=== PATIENT | male | born 1965 | race Caucasian/White ===

== ENCOUNTER 2016-09-12 05:38 | Day surgery (SDC) | payer OTHER ==
[2016-09-12] MEDS ORDERED: IV START KIT ONE (05:51)
[2016-09-12] MEDS ORDERED: LACTATED RINGERS 1,000 ML ONE (05:51)
[2016-09-12] MEDS ORDERED: FENTANYL 250 MCG/5 ML AMP ONE (06:31)
[2016-09-12] MEDS ORDERED: MIDAZOLAM HCL 5 MG/5 ML VIAL ONE (06:31)
[2016-09-12] MEDS ORDERED: PROPOFOL 60 ML IV ONE (07:05)
[2016-09-12] MEDS ORDERED: KETAMINE HCL UD SYRINGE 100 MG/2 ML IV ONE (07:06)
--- NOTE | 2016-09-14 10:58 | SURGPATH ---
[facility] [address] [place] [id number] Patient Name: PACHECO VALENZUELA MR#: [id number] : 1965 Gender: M Specimen #: [id number] Collected: 09/12/2016 Received: 09/13/2016 Reported: 09/14/2016 Submitting Phys: ORTEGA YOU Copy To Phys: [facility] JAIRO FAIRBANKS Clinical History / Pre-Operative Diagnosis: INITIAL SCREENING COLONOSCOPY Specimen Source / Surgical Procedure Performed: DESCENDING COLON POLYP AT 25 CM X2 Interpretation: DESCENDING COLON, BIOPSIES: - HYPERPLASTIC POLYPS Electronically Signed Out Sky Nguyen M.D. Gross Description: The specimen is received in a formalin filled container labeled and "polyp, descending colon at 25 cm x2". To zelaya biopsies are each 0.4 cm. Totally embedded in one cassette. with velvet Yoana Colunga Microscopic Description: Microscopic performed. 1: 53721 K63.5
== END 2016-09-12 08:45 | disposition home or self-care (01) ==
LOC: SDC 05:38
PROVIDERS: ATTEND Family Medicine
PROC: 0DJD8ZZ Inspection of Lower Intestinal Tract, Via Natural or Artificial Opening Endoscopic (ICD-10-PCS; principal; 2016-09-12)
DX: Z12.11 Encounter for screening for malignant neoplasm of colon (principal); D12.6 Benign neoplasm of colon, unspecified; K57.30 Diverticulosis of large intestine without perforation or abscess without bleeding; K64.1 Second degree hemorrhoids; K64.4 Residual hemorrhoidal skin tags; K21.9 Gastro-esophageal reflux disease without esophagitis; F17.210 Nicotine dependence, cigarettes, uncomplicated; E11.9 Type 2 diabetes mellitus without complications; Z79.82 Long term (current) use of aspirin; Z80.6 Family history of leukemia
CPT/HCPCS: 45378; J3010; J2250; J7120